=== PATIENT | female | born 1965 | race Hispanic/Latino ===

== ENCOUNTER 2024-05-04 12:34 | Observation (INO) | payer SELFPAY ==
--- OUTSIDE RECORDS SUMMARY | 2024-05-04 12:37 | XMS REPORT | Continuity of Care Document ---
Author Name Unknown Address [address] [facility] [address] [place] [address] [facility] thconnect Address [address] [facility] [address] [place] [address] Care Team Providers Care Motor Room Controller Name Role Phone Luther Dennys Jacob Attending Clinician Un available Inés John Attending Clinician Unavailable Gibran Murillo Attending Clinician Unavailable Mansoor Minor Attending Clinician Unavailable Physician, No Primary or Family Admitting Clinic kelli Unavailable Luther Dennys Jacob Admitting Clinician Un available Payers Payer Name Policy Type Policy Number Effective Date Expirati on Date Source Allergies, Adverse Reactions, Alerts Allergy Name Allergy Type Status Severity Reaction(s) Onset Date Inactive Date Treating Clinician Comments Source No Known Allergie s DA Active U 10-19 00:00: 00 [facility] No Known Allergie s DA Active U 10-19 00:00: 00 [facility] Encounters Start Date/Time End Date/Time Encounter Type Admission Type Attending Clinicians Care Facility Care Department Encounter ID Source 2020-01-09 20:48:00 Inpatient [facility] ER [id number] [facility] 2019-10-20 11:16:00 Inpatient [facility] ER [id number] [facility] 2024-02-08 13:39:00 2024-02-10 10:38:00 Inpatient EM Dennys Hernandez [facility] TEL [id number] [facility] 2023-03-20 17:34:00 2023-03-20 19:55:00 Emergency EM Inés John [facility] ER [id number] [facility] 2023-03-15 13:50:00 2023-03-15 15:50:00 Emergency EM Gibran Murillo [facility] ER [id number] [facility] 2023-03-13 16:20:00 2023-03-13 17:11:00 Emergency EM Mansoor Minor [facility] ER [id number] [facility] Results Test Description Test Time Test Comments Results Result Co mments Source COMPREHENSIVE METABOLIC [id number] 04:54:00* Test Item Value Reference Range Interpretation Comme nts SODIUM (test code = NA) 138 mmol/L 136-145 N Please revi ew results with caution Methodology has been changed with new instrumentation POTASSIUM (test code = K) 3.4 mmol/L 3.4-5.1 N Please revi ew results with caution Methodology has been changed with new instrumentation CHLORIDE (test code = CL) 107 mmol/L 98-107 N Please revi ew results with caution Methodology has been changed with new instrumentation CARBON DIOXIDE (test code = CO2) 26.0 mmol/L 20-31 N Please re view results with caution Methodology has been changed with new instrumentation GLUCOSE (test code = GLU) 182 mg/dL 74-106 H Please revi ew results with caution Methodology has been changed with new instrumentation BLOOD UREA NITROGEN (test code = BUN) 12 mg/dL 9-23 N Please revi ew results with caution Methodology has been changed with new instrumentation GLOMERULAR FILTRATION RATE (test code = GFR) 87 45-104 N The Glomerular Filtration Rate is a calculated parameterbased on serum Creatinine, patient age and sex. GFR valuesless than 60 mL/min/1.73 square meters are indicative ofChronic Kidney Disease. Values less than 15 mL/min/1.73square meters indicate Kidney failure. The calculation forGFR is based on the CKD-EPI (2020) calculation. This formulais race indifferent and is the recommended formula for GFRby the National Kidney Foundation for Adults.The GFR will not calculate if the sex is unknown or if thepatient's age is <18 years. CREATININE (test code = CREAT) 0.78 mg/dL 0.55-1.02 N Please revi ew results with caution Methodology has been changed with new instrumentation TOTAL PROTEIN (test code = PROT) 6.0 g/dL 5.7-8.2 N Please r eview results with caution Methodology has been changed with new instrumentation ALBUMIN (test code = ALB) 2.5 g/dL 3.4-5.0 L Please revi ew results with caution Methodology has been changed with new instrumentation GLOBULIN (test code = GLOB) 3.5 G/DL 1.5-3.8 N ALBUMIN/GLOBULIN RATIO (test code = A/G) 0.7 1.1-2.2 L CALCIUM (test code = CA) 8.5 mg/dL 8.3-10.6 N Please revi ew results with caution Methodology has been changed with new instrumentation BILIRUBIN TOTAL (test code = BILT) 0.40 mg/dL 0.20-1.10 N Please r eview results with caution Methodology has been changed with new instrumentation SGOT/AST (test code = AST) 14 U/L 0-33 N Please revi ew results with caution Methodology has been changed with new instrumentation SGPT/ALT (test code = ALT) 19 U/L 10-49 N Please revi ew results with caution Methodology has been changed with new instrumentation ALKALINE PHOSPHATASE TOTAL (test code = ALKP) 123 U/L 46-116 H Please r eview results with caution Methodology has been changed with new instrumentation INDEX HEMOLYSIS (test code = HEMINDEX) NEGATIVE Grade See_Comment [Automated messa ge] The system which generated this result transmitted reference range: 0 NEG. The reference range was not used to interpret this result as normal/abnormal. INDEX ICTERIC (test code = ICTINDEX) NEGATIVE Grade See_Comment [Automated messa ge] The system which generated this result transmitted reference range: 0 NEG. The reference range was not used to interpret this result as normal/abnormal. INDEX LIPEMIA (test code = LIPINDEX) NEGATIVE Grade See_Comment [Automated messa ge] The system which generated this result transmitted reference range: 0 NEG. The reference range was not used to interpret this result as normal/abnormal. CBC W/AUTO [id number] 02:50:00* Test Item Value Reference Range Interpretation Comme nts WHITE BLOOD CELL (test code = WBC) 7.03 x10 3/uL 4.80-10.80 N RED BLOOD CELL (test code = RBC) 4.27 x10 6/uL 4.2-5.4 N HEMOGLOBIN (test code = HGB) 12.3 G/DL 12.0-16.0 N HEMATOCRIT (test code = HCT) 36.3 % 37-47 L MEAN CELL VOLUME (test code = MCV) 85.0 FL 81-99 N MEAN CELL HGB (test code = MCH) 28.8 PG 27-31 N MEAN CELL HGB CONCENTRATION (test code = MCHC) 33.9 G/DL 33-37 N RED CELL DISTRIBUTION WIDTH (test code = RDW) 12.7 % 11.5-14.5 N PLATELET COUNT (test code = PLT) 157 x10 3/uL 150-450 N MEAN PLATELET VOLUME (test c ode = MPV) 10.5 FL 7.4-10.4 H NEUTROPHIL % (test code = NT%) 52.5 % 42-86 N IMMATURE GRANULOCYTE % (test code = IG%) 0.4 % 0.0-2.0 N LYMPHOCYTE % (test code = LY%) 34.4 % 24-44 N MONOCYTE % (test code = MO%) 8.0 % 0.0-4.0 H EOSINOPHIL % (test code = EO%) 4.4 % 0.0-2.7 H BASOPHIL % (test code = BA%) 0.3 % 0.0-0.5 N NUCLEATED RBC % (test code = NRBC%) 0.0 % 0.0-0.0 N NEUTROPHIL # (test code = NT#) 3.69 x10 3/uL 1.8-7.7 N IMMATURE GRANULOCYTE # (test code = IG#) 0.03 x10 3/uL 0.00-0.03 N LYMPHOCYTE # (test code = LY#) 2.42 x10 3/uL 1.0-4.8 N MONOCYTE # (test code = MO#) 0.56 x10 3/uL 0.0-0.8 N EOSINOPHIL # (test code = EO#) 0.31 x10 3/uL 0.0-0.5 N BASOPHIL # (test code = BA#) 0.02 x10 3/uL 0.0-0.2 N NUCLEATED RBC # (test code = NRBC#) 0.0 X10 3/uL 0.0-0.2 N [id number] 19:41:00* Test Item Value Reference Range Interpretation Comme nts GLUBED (test code = GLUBED) 295 MG/DL 65-99 H Performed by cer tified blow pit operator at [facility] [id number] 15:38:00* Test Item Value Reference Range Interpretation Comme nts GLUBED (test code = GLUBED) 234 MG/DL 65-99 H Performed by cer tified blow pit operator at [facility] [id number] 10:31:00* Test Item Value Reference Range Interpretation Comme nts GLUBED (test code = GLUBED) 279 MG/DL 65-99 H Performed by cer tified blow pit operator at [facility] RAPID PLASMA [id number] 09:55:00* Test Item Value Reference Range Interpretation Comme nts RAPID PLASMA REAGIN (test co de = RPR) Nonreactive Nonreactive PLEASE ADD ON TO GOLD TOP IN LAB AIF AVAILABLE AT [id number] 05:32:00 * Test Item Value Reference Range Interpretation Comme nts GLUBED (test code = GLUBED) 185 MG/DL 65-99 H Performed by cer tified blow pit operator at [facility] [id number] 04:25:00* Test Item Value Reference Range Interpretation Comme nts MAGNESIUM (test code = MAG) 1.7 mg/dL 1.6-2.6 N Please revi ew results with caution Methodology has been changed with new instrumentation COMPREHENSIVE METABOLIC [id number] 04:25:00* Test Item Value Reference Range Interpretation Comme nts SODIUM (test code = NA) 138 mmol/L 136-145 N Please revi ew results with caution Methodology has been changed with new instrumentation POTASSIUM (test code = K) 3.4 mmol/L 3.4-5.1 N Please revi ew results with caution Methodology has been changed with new instrumentation CHLORIDE (test code = CL) 108 mmol/L 98-107 H Please revi ew results with caution Methodology has been changed with new instrumentation CARBON DIOXIDE (test code = CO2) 26.0 mmol/L 20-31 N Please re view results with caution Methodology has been changed with new instrumentation GLUCOSE (test code = GLU) 235 mg/dL 74-106 H Please revi ew results with caution Methodology has been changed with new instrumentation BLOOD UREA NITROGEN (test code = BUN) 18 mg/dL 9-23 N Please revi ew results with caution Methodology has been changed with new instrumentation GLOMERULAR FILTRATION RATE (test code = GFR) 102 45-104 N The Glomerular Filtration Rate is a calculated parameterbased on serum Creatinine, patient age and sex. GFR valuesless than 60 mL/min/1.73 square meters are indicative ofChronic Kidney Disease. Values less than 15 mL/min/1.73square meters indicate Kidney failure. The calculation forGFR is based on the CKD-EPI (202) calculation. This formulais race indifferent and is the recommended formula for GFRby the National Kidney Foundation for Adults.The GFR will not calculate if the sex is unknown or if thepatient's age is <18 years. CREATININE (test code = CREAT) 0.62 mg/dL 0.55-1.02 N Please revi ew results with caution Methodology has been changed with new instrumentation TOTAL PROTEIN (test code = PROT) 5.8 g/dL 5.7-8.2 N Please r eview results with caution Methodology has been changed with new instrumentation ALBUMIN (test code = ALB) 2.5 g/dL 3.4-5.0 L Please revi ew results with caution Methodology has been changed with new instrumentation GLOBULIN (test code = GLOB) 3.3 G/DL 1.5-3.8 N ALBUMIN/GLOBULIN RATIO (test code = A/G) 0.8 1.1-2.2 L CALCIUM (test code = CA) 8.4 mg/dL 8.3-10.6 N Please revi ew results with caution Methodology has been changed with new instrumentation BILIRUBIN TOTAL (test code = BILT) 0.70 mg/dL 0.20-1.10 N Please r eview results with caution Methodology has been changed with new instrumentation SGOT/AST (test code = AST) 20 U/L 0-33 N Please revi ew results with caution Methodology has been changed with new instrumentation SGPT/ALT (test code = ALT) 22 U/L 10-49 N Please revi ew results with caution Methodology has been changed with new instrumentation ALKALINE PHOSPHATASE TOTAL (test code = ALKP) 115 U/L 46-116 N Please r eview results with caution Methodology has been changed with new instrumentation INDEX HEMOLYSIS (test code = HEMINDEX) NEGATIVE Grade See_Comment [Automated messa ge] The system which generated this result transmitted reference range: 0 NEG. The reference range was not used to interpret this result as normal/abnormal. INDEX ICTERIC (test code = ICTINDEX) NEGATIVE Grade See_Comment [Automated messa ge] The system which generated this result transmitted reference range: 0 NEG. The reference range was not used to interpret this result as normal/abnormal. INDEX LIPEMIA (test code = LIPINDEX) NEGATIVE Grade See_Comment [Automated messa ge] The system which generated this result transmitted reference range: 0 NEG. The reference range was not used to interpret this result as normal/abnormal. [id number] 04:25:00* Test Item Value Reference Range Interpretation Comme nts PHOSPHOROUS (test code = PHOS) 2.8 mg/dL 2.4-5.1 N Please revi ew results with caution Methodology has been changed with new instrumentation CBC W/AUTO [id number] 03:38:00* Test Item Value Reference Range Interpretation Comme nts WHITE BLOOD CELL (test code = WBC) 11.01 x10 3/uL 4.80-10.80 H RED BLOOD CELL (test code = RBC) 4.12 x10 6/uL 4.2-5.4 L HEMOGLOBIN (test code = HGB) 11.7 G/DL 12.0-16.0 L HEMATOCRIT (test code = HCT) 34.8 % 37-47 L MEAN CELL VOLUME (test code = MCV) 84.5 FL 81-99 N MEAN CELL HGB (test code = MCH) 28.4 PG 27-31 N MEAN CELL HGB CONCENTRATION (test code = MCHC) 33.6 G/DL 33-37 N RED CELL DISTRIBUTION WIDTH (test code = RDW) 12.8 % 11.5-14.5 N PLATELET COUNT (test code = PLT) 153 x10 3/uL 150-450 N MEAN PLATELET VOLUME (test code = MPV) 10.9 FL 7.4-10.4 H NEUTROPHIL % (test code = NT%) 64.2 % 42-86 N IMMATURE GRANULOCYTE % (test code = IG%) 0.4 % 0.0-2.0 N LYMPHOCYTE % (test code = LY%) 25.8 % 24-44 N MONOCYTE % (test code = MO%) 6.9 % 0.0-4.0 H EOSINOPHIL % (test code = EO%) 2.2 % 0.0-2.7 N BASOPHIL % (test code = BA%) 0.5 % 0.0-0.5 N NUCLEATED RBC % (test code = NRBC%) 0.0 % 0.0-0.0 N NEUTROPHIL # (test code = NT#) 7.08 x10 3/uL 1.8-7.7 N IMMATURE GRANULOCYTE # (test code = IG#) 0.04 x10 3/uL 0.00-0.03 H LYMPHOCYTE # (test code = LY#) 2.84 x10 3/uL 1.0-4.8 N MONOCYTE # (test code = MO#) 0.76 x10 3/uL 0.0-0.8 N EOSINOPHIL # (test code = EO#) 0.24 x10 3/uL 0.0-0.5 N BASOPHIL # (test code = BA#) 0.05 x10 3/uL 0.0-0.2 N NUCLEATED RBC # (test code = NRBC#) 0.0 X10 3/uL 0.0-0.2 N [id number] 21:40:00* Test Item Value Reference Range Interpretation Comme nts GLUBED (test code = GLUBED) 148 MG/DL 65-99 H Performed by cer tified blow pit operator at [facility] [id number] 19:57:00* Test Item Value Reference Range Interpretation Comme nts GLUBED (test code = GLUBED) 189 MG/DL 65-99 H Performed by cer tified blow pit operator at [facility] [id number] 16:54:00* Test Item Value Reference Range Interpretation Comme nts GLUBED (test code = GLUBED) 354 MG/DL 65-99 H Performed by cer tified blow pit operator at [facility] THYROID STIMULATING [id number] 16:02:00* Test Item Value Reference Range Interpretation Comme nts THYROID STIMULATING HORMONE (test code = TSH) 0.743 uIU/mL 0.550-4.780 N Micro-Internatio nal Units/L Please review results with caution Methodology has been changed with new instrumentation PLEASE ADD ON [facility] HEMOGLOBIN (HA1C)2024-02-08 15:47:00* Test Item Value Reference Range Interpretation Comme nts GLYCOSYLATED HEMOGLOBIN (HA1C) (test code = GLYHGB) 13.50 % 0.0-5.6 H Please review results with caution Methodology has been changed with new instrumentation PLEASE ADD ON TO BLOOD [facility]BUSE SCREEN [id number] 15:46:00* Test Item Value Reference Range Interpretation Comments UR COCAINE (test code = COCAU) NEGATIVE NEGATIVE Please revi ew results with caution Methodology has been changed with new instrumentation UR MDMA (test code = MDMAQLU) NEGATIVE NEGATIVE UR CANNABINOIDS (test code = CANU) NEGATIVE NEGATIVE Please r eview results with caution Methodology has been changed with new instrumentation UR AMPHETAMINE (test code = AMPHU) NEGATIVE NEGATIVE Please revi ew results with caution Methodology has been changed with new instrumentation UR BARBITURATE QUAL (test code = BARBQLU) NEGATIVE NEGATIVE Please revi ew results with caution Methodology has been changed with new instrumentation UR BENZODIAZEPINE (test code = BENZU) NEGATIVE NEGATIVE Please review results with caution Methodology has been changed with new instrumentation UR OPIATES QUAL (test code = OPIAQLU) NEGATIVE NEGATIVE Please revi ew results with caution Methodology has been changed with new instrumentation UR PHENCYCLIDINE (PCP) (test code = PHENCU) NEGATIVE NEGATIVE Urine Drug Abuse Screen provides preliminary results thatmay be confirmed by alternate methods (i.e., GC/MS) [facility]. Results of screen may not be usedin criminal justice, job performance or professionalcredential review, or custody issues. Negative [place] Level ng/ml ----- Cocaine 300 Methamphetamine (Ecstacy) 500 Cannabinoids (THC) 50 Amphetamine 1000 Barbiturates 200 Benzodiazepines 200 Opiates 300 Phencyclidine (PCP) 25 PLEASE ADD ON TO URINE IN LAB AT [facility] [id number] 14:14:00* Test Item Value Reference Range Interpretation Comme nts LACTIC ACID (test code = LACT) 2.90 mmol/L 0.5-2.2 H Please revi ew results with caution Methodology has been changed with new instrumentation [id number] 13:43:00* Test Item Value Reference Range Interpretation Comme nts GLUBED (test code = GLUBED) 398 MG/DL 65-99 H Performed by cer tified blow pit operator at [facility] LACTIC [id number] 13:29:00* Test Item Value Reference Range Interpretation Comme nts LACTIC ACID (test code = LACT) 2.10 mmol/L 0.5-2.2 N Please revi ew results with caution Methodology has been changed with new instrumentation BASIC METABOLIC [id number] 12:59:00* Test Item Value Reference Range Interpretation Comme nts SODIUM (test code = NA) 136 mmol/L 136-145 N Please revi ew results with caution Methodology has been changed with new instrumentation POTASSIUM (test code = K) 4.0 mmol/L 3.4-5.1 N Please revi ew results with caution Methodology has been changed with new instrumentation CHLORIDE (test code = CL) 104 mmol/L 98-107 N Please revi ew results with caution Methodology has been changed with new instrumentation CARBON DIOXIDE (test code = CO2) 28.0 mmol/L 20-31 N Please re view results with caution Methodology has been changed with new instrumentation GLUCOSE (test code = GLU) 520 mg/dL 74-106 HH Please revi ew results with caution Methodology has been changed with new instrumentation BLOOD UREA NITROGEN (test code = BUN) 21 mg/dL 9-23 N Please revi ew results with caution Methodology has been changed with new instrumentation GLOMERULAR FILTRATION RATE (test code = GFR) 55 45-104 N The Glomerular Filtration Rate is a calculated parameterbased on serum Creatinine, patient age and sex. GFR valuesless than 60 mL/min/1.73 square meters are indicative ofChronic Kidney Disease. Values less than 15 mL/min/1.73square meters indicate Kidney failure. The calculation forGFR is based on the CKD-EPI (202) calculation. This formulais race indifferent and is the recommended formula for GFRby the National Kidney Foundation for Adults.The GFR will not calculate if the sex is unknown or if thepatient's age is <18 years. CREATININE (test code = CREAT) 1.14 mg/dL 0.55-1.02 H Please revi ew results with caution Methodology has been changed with new instrumentation CALCIUM (test code = CA) 9.2 mg/dL 8.3-10.6 N Please revi ew results with caution Methodology has been changed with new instrumentation INDEX HEMOLYSIS (test code = HEMINDEX) NEGATIVE Grade See_Comment [Automated messa ge] The system which generated this result transmitted reference range: 0 NEG. The reference range was not used to interpret this result as normal/abnormal. INDEX ICTERIC (test code = ICTINDEX) NEGATIVE Grade See_Comment [Automated messa ge] The system which generated this result transmitted reference range: 0 NEG. The reference range was not used to interpret this result as normal/abnormal. INDEX LIPEMIA (test code = LIPINDEX) NEGATIVE Grade See_Comment [Automated messa ge] The system which generated this result transmitted reference range: 0 NEG. The reference range was not used to interpret this result as normal/abnormal. : High sensitivity troponinHEPATIC FUNCTION [id number] 12:59:00* Test Item Value Reference Range Interpretation Comme nts TOTAL PROTEIN (test code = PROT) 7.3 g/dL 5.7-8.2 N Please revi ew results with caution Methodology has been changed with new instrumentation ALBUMIN (test code = ALB) 3.4 g/dL 3.4-5.0 N Please revi ew results with caution Methodology has been changed with new instrumentation GLOBULIN (test code = GLOB) 3.9 G/DL 1.5-3.8 H ALBUMIN/GLOBULIN RATIO (test code = A/G) 0.9 1.1-2.2 L BILIRUBIN TOTAL (test code = BILT) 0.90 mg/dL 0.20-1.10 N Please r eview results with caution Methodology has been changed with new instrumentation BILIRUBIN DIRECT (test code = BILD) 0.3 mg/dL 0.1-0.3 N Please r eview results with caution Methodology has been changed with new instrumentation BILIRUBIN INDIRECT (test code = BILIND) 0.6 MG/DL 0.0-0.7 N SGOT/AST (test code = AST) 15 U/L 0-33 N Please revi ew results with caution Methodology has been changed with new instrumentation SGPT/ALT (test code = ALT) 20 U/L 10-49 N Please revi ew results with caution Methodology has been changed with new instrumentation ALKALINE PHOSPHATASE TOTAL (test code = ALKP) 151 U/L 46-116 H Please revi ew results with caution Methodology has been changed with new instrumentation : High sensitivity troponinTROP-I HIGH [id number] 12:59:00* Test Item Value Reference Range Interpretation Comme nts TROP-I HIGH SENSITIVITY (test code = TROPIHS) 4.0 ng/L < 34 - The use of serial sampling and testing protocol is a recommended practice.- An elevated troponin level alone is often not sufficient for diagnosis of myocardial infarction.New Reference Ranges please review<34 ng/L for Females and <53 ng/L for Males revised from <51 ng/L for Females and <76 ng/L for Maleson 01/16/2024 : High sensitivity troponinCV CALL [id number] 12:59:00* Test Item Value Reference Range Interpretation Comme nts CV CALL CHEM (test code = CVC) Called Results called t o and read back by RUFINA MONTANO;.for analyte(s): GLU .at 1259 - 02/08/24; by [id number]. : High sensitivity troponinCBC W/AUTO [id number] 12:31:00* Test Item Value Reference Range Interpretation Comme nts WHITE BLOOD CELL (test code = WBC) 11.27 x10 3/uL 4.80-10.80 H RED BLOOD CELL (test code = RBC) 4.76 x10 6/uL 4.2-5.4 N HEMOGLOBIN (test code = HGB) 13.6 G/DL 12.0-16.0 N HEMATOCRIT (test code = HCT) 40.5 % 37-47 N MEAN CELL VOLUME (test code = MCV) 85.1 FL 81-99 N MEAN CELL HGB (test code = MCH) 28.6 PG 27-31 N MEAN CELL HGB CONCENTRATION (test code = MCHC) 33.6 G/DL 33-37 N RED CELL DISTRIBUTION WIDTH (test code = RDW) 12.6 % 11.5-14.5 N PLATELET COUNT (test code = PLT) 167 x10 3/uL 150-450 N MEAN PLATELET VOLUME (test code = MPV) 11.0 FL 7.4-10.4 H NEUTROPHIL % (test code = NT%) 90.6 % 42-86 H IMMATURE GRANULOCYTE % (test code = IG%) 0.5 % 0.0-2.0 N LYMPHOCYTE % (test code = LY%) 5.7 % 24-44 L MONOCYTE % (test code = MO%) 1.8 % 0.0-4.0 N EOSINOPHIL % (test code = EO%) 1.0 % 0.0-2.7 N BASOPHIL % (test code = BA%) 0.4 % 0.0-0.5 N NUCLEATED RBC % (test code = NRBC%) 0.0 % 0.0-0.0 N NEUTROPHIL # (test code = NT#) 10.22 x10 3/uL 1.8-7.7 H IMMATURE GRANULOCYTE # (test code = IG#) 0.06 x10 3/uL 0.00-0.03 H LYMPHOCYTE # (test code = LY#) 0.64 x10 3/uL 1.0-4.8 L MONOCYTE # (test code = MO#) 0.20 x10 3/uL 0.0-0.8 N EOSINOPHIL # (test code = EO#) 0.11 x10 3/uL 0.0-0.5 N BASOPHIL # (test code = BA#) 0.04 x10 3/uL 0.0-0.2 N NUCLEATED RBC # (test code = NRBC#) 0.0 X10 3/uL 0.0-0.2 N Coronavirus 2019 nCoV [id number] 12:19:00* Test Item Value Reference Range Interpretation Comme nts Coronavirus 2019 nCoV Bedside (test code = [id number]) Negative Negative ID NOW COVID-19 assay performed on the ID NOW Instrument annalisa rapid molecular in vitro diagnostic test utilizing anisothermal nucleic acid amplification technology intendedfor the qualitative detection of nucleic acid from [id number] viral RNA in direct nasal, nasopharyngeal orthroat swabs and nasal, nasopharyngeal or throat swabseluted in viral transport media from individuals who aresuspected of COVID-19 by their healthcare provider. Negative results should be treated as presumptive and, ifinconsistent with clinical signs and symptoms or necessaryfor patient management, should be tested with differentauthorized or cleared molecular tests. Negative results donot preclude SARS-CoV-2 infection and should not be used asthe sole basis for patient management decisions. Negativeresults should be considered in the context of a patient'srecent exposures, history and presence of clinical signs andsymptoms consistent with COVID-19.Results are for the identification of SARS-CoV-2 RNA.For Use Under an Emergency Use Authorization (EUA) Only Negative results do not preclude SARS-CoV-2 infection andshould not be used as the sole basis for patient managementdecisions. Negative results must be combined with clinicalobservations, patient history, and epidemiologicalinformation . UA RFLX MICROSCOPIC [id number] 12:15:00* Test Item Value Reference Range Interpretation Comme nts UA COLOR (test code = COLU) Yellow YELLOW UA APPEARANCE (test code = APPU) Ex.Turbid CLEAR UA GLUCOSE DIPSTICK (test code = DGLUU) > 1000 mg/dL NEGATIVE A UA BILIRUBIN DIPSTICK (test code = BILU) NEGATIVE NEGATIVE UA KETONE DIPSTICK (test code = KETU) NEGATIVE mg/dL NEGATIVE UA SPECIFIC GRAVITY (test code = SGU) 1.024 1.001-1.035 N UA BLOOD DIPSTICK (test code = RADHA) 2+ NEGATIVE A UA PH DIPSTICK (test code = MARY ELLEN) 5.5 5.5-7.0 N UA PROTEIN DIPSTICK (test code = PROU) 100 mg/dL NEGATIVE A UA UROBILINOGEN DIPSTICK (test code = URO) NORMAL mg/dL NORMAL UA NITRITE DIPSTICK (test code = RAFI) NEGATIVE NEGATIVE UA LEUKOCYTE ESTERASE DIPSTICK (test code = LEUU) 500 NEGATIVE A UA COMMENT (test code = COMU) VOLUME 10-12 ML URINE SPECIMEN DESCRIPTION (test code = UASPEC) Clean Catch UA WBC (test code = WBCU) > 50 #/HPF 0-10 A UA SQUAMOUS CELLS (test code = SQU) > 100 #/LPF <100 A UA CULTURE NEEDED? (test code = UACULT) Criteria not met Indication for culture: RiskForSepsis-no oth src Suprapubic PainURINE SOURCE: Clean CatchUA [id number] 12:15:00* Test Item Value Reference Range Interpretation Comme nts UA RBC (test code = RBCU) 0-2 #/hpf NONE SEEN A Indication for culture: RiskForSepsis-no oth src Suprapubic PainURINE SOURCE: Clean Catch- XR RIBS UNI W/CXR 3+V [id number] 19:04:00 [facility] 1965 Sex: F Patient Name: STEFANO SINCLAIR Unit No: [id number] EXAMS: CPT CODE: [id number] XR RIBS UNI W/CXR 3+V [id number] Reason: pain, previous fractures EXAM: - XR RIBS UNI W/CXR 3+V LT LOCATION: H47 HISTORY: pain, previous fractures COMPARISON: None available at the time of interpretation. FINDINGS: 2 views ofthe left ribs. Single frontal view the chest. No indwelling lines or tubes. No pneumothorax. The lungs are clear. No pleural effusions are present. No displaced rib fractures. IMPRESSION: No displaced rib fractures. at 1904 Reported and signed by: Savage Chaney MD CC: Zhou MOSQUEDA; Inés John MD Technologist: Charissa Almodovar Trscrpt Dt/ (1903)[email or web address] Orig Print D/T: S: 03/20/2023 (1906) [facility] NAME: STEFANO SINCLAIR [address] PHYS: Inés Scott MD [facility] [place] [address] : 1965 AGE: 57 SEX: F LOC: TAE PHONE #: [phone] EXAM DATE: 03/20/2023 STATUS: REG ER FAX #: RAD NO: DC Dt: PAGE 1 Signed Report- XR RIBS UNI W/CXR 3+V [id number] 14:30:00 [facility] : 1965 Sex: F Patient Name: STEFANO SINCLAIR Unit No: [id number] EXAMS: CPT CODE: [id number] XR RIBS UNI W/CXR 3+V [id number] Reason: return from visit 4 days ago continued pain med Left rib series with PA view chest INDICATION: Fall with rib pain LOCATION: H113 FINDINGS: PA view of the chest demonstrates no consolidation, large pleural effusions or pneumothorax. The cardiac silhouette is normal in size. AP and oblique views of the left ribs demonstrate a nondisplaced acute fracture of the posterior lateral aspectof the left 6th and 7th ribs. IMPRESSION: 1. Acute nondisplaced fracture of the posterolateral aspect of the left 6th and 7th ribs. 2. Clear lungs. at 1430 Reported and signed by: Charan Ryan MD CC: Germán MOSQUEDA; Gibran Murillo DO Technologist: RT Lakisha Trscrpt Dt/ (143)AlexandrRSM1 Orig Print D/T: S: 03/15/2023 (5443) [facility] NAME: STEFANO SINCLAIR [address] PHYS: [id number] - Gibran Murillo DO [facility] [address] : 1965 AGE: 57 SEX: F LOC: TAE PHONE #: [phone] EXAM DATE: 03/15/2023 STATUS: PRE ER FAX #: RAD NO: DC Dt: PAGE 1 Signed Report- XR RIBS UNI 2 V [id number] 16:52:00 [facility] : 1965 Sex: F Patient Name: STEFANO PETERSON Unit No: [id number] EXAMS: CPT CODE: [id number] XR RIBS UNI 2 [place] [address] Reason: fall/rib pain Dictation location B2 Chest and bilateral RIBS 6 views HISTORY: Fall with rib pain COMMENT: The heart is normal in size. The lungs are symmetrically expanded with no contusion or pneumothorax. Small effusions are suspected. No displaced rib fractures seen. There is no paraspinal widening. There are spondylitic changes stopped spine. Postcholecystectomy clips noted. IMPRESSION: 1. Small effusions with no other acute findings in the chest. 2. No displaced rib fractures. 3. In the setting of trauma, further evaluation with CT may be helpful. at 1652 Reported and signed by: Elza Pike MD CC: Mansoor Minor MD; Tal MOSQUEDA Technologist: Betsey CANDELARIO Trscrpt Dt/ (1651)DeannC Orig Print D/T: S: 03/13/2023 (1656) [facility] NAME: STEFANO PETERSON [address] PHYS: Mansoor Kelly MD [facility] [place] [address] : 1965 AGE: 57 SEX: F LOC: TAE PHONE #: [phone] EXAM DATE: 03/13/2023 STATUS: PRE ER FAX #: RAD NO: DC Dt: PAGE 1 Signed Report- XR RIBS UNI W/CXR 3+V [id number] 16:52:00 [facility] : 1965 Sex: F Patient Name: STEFANO PETERSON Unit No: [id number] EXAMS: CPT CODE: [id number] XR RIBS UNI W/CXR 3+[place] [id number] Reason: fall/rib pain Dictation location B2 Chest and bilateral RIBS 6 views HISTORY: Fall with rib pain COMMENT: The heart is normal in size. The lungs are symmetrically expanded with no contusion or pneumothorax. Small effusions are suspected. No displaced rib fractures seen. There is no paraspinal widening. There are spondylitic changes stopped spine. Postcholecystectomy clips noted. IMPRESSION: 1. Small effusions with no other acute findings in the chest. 2. No displaced rib fractures. 3. In the setting of trauma, further evaluation with CT may be helpful. at 1652 Reported and signed by: Elza Pike MD CC: Mansoor Minor MD; Sarah MOSQUEDA Technologist: Betsey CANDELARIO Trscrpt Dt/ (6561)AlexandrPXC Orig Print D/T: S: 03/13/2023 (9100) [facility] NAME: PETERSONNILES GuthrieA Megan [address] PHYS: Mansoor Kelly MD [facility] [address] : 1965 AGE: 57 SEX: F LOC: AlexanderSTEPH PHONE #: [phone] EXAM DATE: 03/13/2023 STATUS: PRE ER FAX #: RAD NO: DC Dt: PAGE 1 Signed ReportUA RFLX MICROSCOPIC [id number] 22:49:00* Test Item Value Reference Range Interpretation Comme nts UA COLOR (test code = COLU) Colorless YELLOW UA APPEARANCE (test code = APPU) CLEAR CLEAR UA GLUCOSE DIPSTICK (test code = DGLUU) > 1000 mg/dL NEGATIVE A UA BILIRUBIN DIPSTICK (test code = BILU) NEGATIVE NEGATIVE UA KETONE DIPSTICK (test code = KETU) NEGATIVE mg/dL NEGATIVE UA SPECIFIC GRAVITY (test code = SGU) 1.035 1.001-1.035 N UA BLOOD DIPSTICK (test code = RADHA) NEGATIVE NEGATIVE UA PH DIPSTICK (test code = MARY ELLEN) 5.5 5.5-7.0 N UA PROTEIN DIPSTICK (test code = PROU) NEGATIVE mg/dL NEGATIVE UA UROBILINOGEN DIPSTICK (test code = URO) NORMAL mg/dL NORMAL UA NITRITE DIPSTICK (test code = RAFI) NEGATIVE NEGATIVE UA LEUKOCYTE ESTERASE DIPSTICK (test code = LEUU) 75 NEGATIVE A UA COMMENT (test code = COMU) VOLUME 10-12 ML URINE SPECIMEN DESCRIPTION (test code = UASPEC) Clean Catch UA WBC (test code = WBCU) < 10 #/HPF 0-10 UA SQUAMOUS CELLS (test code = SQU) 21 - 40 #/LPF <100 A UA CULTURE NEEDED? (test code = UACULT) Criteria not met Indication for culture: Flank PainURINE SOURCE: Clean CatchUA MICROSCOPIC 2020-01-09 22:49:00* Test Item Value Reference Range Interpretation Comme nts UA RBC (test code = RBCU) 0-2 #/hpf NONE SEEN A Indication for culture: Flank PainURINE SOURCE: Clean CatchUA RFLX MICROSCOPIC [id number] 22:25:00* Test Item Value Reference Range Interpretation Comme nts UA COLOR (test code = COLU) Colorless YELLOW UA APPEARANCE (test code = APPU) CLEAR CLEAR UA GLUCOSE DIPSTICK (test code = DGLUU) > 1000 mg/dL NEGATIVE A UA BILIRUBIN DIPSTICK (test code = BILU) NEGATIVE NEGATIVE UA KETONE DIPSTICK (test code = KETU) NEGATIVE mg/dL NEGATIVE UA SPECIFIC GRAVITY (test code = SGU) 1.035 1.001-1.035 N UA BLOOD DIPSTICK (test code = RADHA) NEGATIVE NEGATIVE UA PH DIPSTICK (test code = MARY ELLEN) 5.5 5.5-7.0 N UA PROTEIN DIPSTICK (test code = PROU) NEGATIVE mg/dL NEGATIVE UA UROBILINOGEN DIPSTICK (test code = URO) NORMAL mg/dL NORMAL UA NITRITE DIPSTICK (test code = RAFI) NEGATIVE NEGATIVE UA LEUKOCYTE ESTERASE DIPSTICK (test code = LEUU) 75 NEGATIVE A UA COMMENT (test code = COMU) VOLUME 10-12 ML URINE SPECIMEN DESCRIPTION (test code = UASPEC) Clean Catch UA WBC (test code = WBCU) < 10 #/HPF 0-10 UA SQUAMOUS CELLS (test code = SQU) 21 - 40 #/LPF <100 A UA CULTURE NEEDED? (test code = UACULT) Criteria not met Indication for culture: Flank PainURINE SOURCE: Clean CatchUA MICROSCOPIC 2020-01-09 22:25:00* Test Item Value Reference Range Interpretation Comme nts UA RBC (test code = RBCU) #/hpf NONE SEEN Indication for culture: Flank PainURINE SOURCE: Clean CatchUA RFLX MICROSCOPIC [id number] 22:25:00* Test Item Value Reference Range Interpretation Comme nts UA COLOR (test code = COLU) Colorless YELLOW UA APPEARANCE (test code = APPU) CLEAR CLEAR UA GLUCOSE DIPSTICK (test code = DGLUU) > 1000 mg/dL NEGATIVE A UA BILIRUBIN DIPSTICK (test code = BILU) NEGATIVE NEGATIVE UA KETONE DIPSTICK (test code = KETU) NEGATIVE mg/dL NEGATIVE UA SPECIFIC GRAVITY (test code = SGU) 1.035 1.001-1.035 N UA BLOOD DIPSTICK (test code = RADHA) NEGATIVE NEGATIVE UA PH DIPSTICK (test code = MARY ELLEN) 5.5 5.5-7.0 N UA PROTEIN DIPSTICK (test code = PROU) NEGATIVE mg/dL NEGATIVE UA UROBILINOGEN DIPSTICK (test code = URO) NORMAL mg/dL NORMAL UA NITRITE DIPSTICK (test code = RAFI) NEGATIVE NEGATIVE UA LEUKOCYTE ESTERASE DIPSTICK (test code = LEUU) 75 NEGATIVE A UA COMMENT (test code = COMU) VOLUME 10-12 ML URINE SPECIMEN DESCRIPTION (test code = UASPEC) Clean Catch UA WBC (test code = WBCU) < 10 #/HPF 0-10 UA SQUAMOUS CELLS (test code = SQU) 21 - 40 #/LPF <100 A UA CULTURE NEEDED? (test code = UACULT) Criteria not met Indication for culture: Flank PainURINE SOURCE: Clean CatchUA MICROSCOPIC 2020-01-09 22:25:00* Test Item Value Reference Range Interpretation Comme nts UA RBC (test code = RBCU) #/hpf NONE SEEN Indication for culture: Flank PainURINE SOURCE: Clean CatchCOMPREHENSIVE METABOLIC [id number] 21:59:00* Test Item Value Reference Range Interpretation Comme nts SODIUM (test code = NA) 136 MMOL/L 133-145 N POTASSIUM (test code = K) 4.1 MMOL/L 3.6-5.2 N CHLORIDE (test code = CL) 101 MMOL/L 100-108 N CARBON DIOXIDE (test code = CO2) 29 MMOL/L 22-32 N GLUCOSE (test code = GLU) 444 MG/DL 65-99 HH Results of this assay method may be falsely depressed orelevated if patient is taking sulfasalazine. BLOOD UREA NITROGEN (test code = BUN) 17 MG/DL 6-20 N GLOMERULAR FILTRATION RATE (test code = GFR) 71 51-120 N Reporting units: mL/min/1.73m\S\2 (Modified MDRD Formula) CREATININE (test code = CREAT) 0.83 MG/DL 0.60-1.00 N TOTAL PROTEIN (test code = PROT) 8.3 G/DL 6.4-8.2 H ALBUMIN (test code = ALB) 3.4 G/DL 3.4-5.0 N GLOBULIN (test code = GLOB) 4.9 G/DL 1.5-3.8 H ALBUMIN/GLOBULIN RATIO (test code = A/G) 0.7 1.1-2.2 L CALCIUM (test code = CA) 9.6 MG/DL 8.7-10.5 N BILIRUBIN TOTAL (test code = BILT) 0.3 MG/DL 0.0-1.0 N SGOT/AST (test code = AST) 19 Units/L 15-37 N Results of this assay method may be falsely depressed orelevated if patient is taking sulfasalazine. SGPT/ALT (test code = ALT) 42 Units/L 30-65 N Results of this assay method may be falsely depressed orelevated if patient is taking sulfasalazine. ALKALINE PHOSPHATASE TOTAL (test code = ALKP) 166 Units/L 50-136 H [id number] 21:59:00* Test Item Value Reference Range Interpretation Comme nts MAGNESIUM (test code = MAG) 2.0 MG/DL 1.8-2.4 N [id number] 21:59:00* Test Item Value Reference Range Interpretation Comme nts TROPONIN-I (test code = TROPI) < 0.04 NG/ML 0.00-0.06 N - The use of ser ial sampling and testing protocol is a recommended practice.- An elevated troponin level alone is often not sufficient for diagnosis of myocardial infarction.Results of this assay method may be falsely depressed orelevated if patient is taking high doses of Biotin. CV CALL [id number] 21:59:00* Test Item Value Reference Range Interpretation Comme nts CV CALL CHEM (test code = CVC) Called Results called t o and read back by RVIER VELASQUEZ RN;.for analyte(s): GLU .at 215801/09/20; by ANTONIOLINDA. COMPREHENSIVE METABOLIC [id number] 21:58:00* Test Item Value Reference Range Interpretation Comme nts SODIUM (test code = NA) 136 MMOL/L 133-145 N POTASSIUM (test code = K) 4.1 MMOL/L 3.6-5.2 N CHLORIDE (test code = CL) 101 MMOL/L 100-108 N CARBON DIOXIDE (test code = CO2) 29 MMOL/L 22-32 N GLUCOSE (test code = GLU) 444 MG/DL 65-99 HH Results of this assay method may be falsely depressed orelevated if patient is taking sulfasalazine. BLOOD UREA NITROGEN (test code = BUN) 17 MG/DL 6-20 N GLOMERULAR FILTRATION RATE (test code = GFR) 71 51-120 N Reporting units: mL/min/1.73m\S\2 (Modified MDRD Formula) CREATININE (test code = CREAT) 0.83 MG/DL 0.60-1.00 N TOTAL PROTEIN (test code = PROT) 8.3 G/DL 6.4-8.2 H ALBUMIN (test code = ALB) 3.4 G/DL 3.4-5.0 N GLOBULIN (test code = GLOB) 4.9 G/DL 1.5-3.8 H ALBUMIN/GLOBULIN RATIO (test code = A/G) 0.7 1.1-2.2 L CALCIUM (test code = CA) 9.6 MG/DL 8.7-10.5 N BILIRUBIN TOTAL (test code = BILT) 0.3 MG/DL 0.0-1.0 N SGOT/AST (test code = AST) 19 Units/L 15-37 N Results of this assay method may be falsely depressed orelevated if patient is taking sulfasalazine. SGPT/ALT (test code = ALT) 42 Units/L 30-65 N Results of this assay method may be falsely depressed orelevated if patient is taking sulfasalazine. ALKALINE PHOSPHATASE TOTAL (test code = ALKP) 166 Units/L 50-136 H [id number] 21:58:00* Test Item Value Reference Range Interpretation Comme nts MAGNESIUM (test code = MAG) 2.0 MG/DL 1.8-2.4 N [id number] 21:58:00* Test Item Value Reference Range Interpretation Comme nts TROPONIN-I (test code = TROPI) < 0.04 NG/ML 0.00-0.06 N - The use of ser ial sampling and testing protocol is a recommended practice.- An elevated troponin level alone is often not sufficient for diagnosis of myocardial infarction.Results of this assay method may be falsely depressed orelevated if patient is taking high doses of Biotin. CV CALL [id number] 21:58:00* Test Item Value Reference Range Interpretation Comme nts CV CALL CHEM (test code = CVC) BETA [id number] 21:45:00* Test Item Value Reference Range Interpretation Comme nts BETA HYDROXYBUTYRATE (test c ode = BETHYD) 0.15 mmol/L 0.02-0.27 N CBC W/AUTO [id number] 21:40:00* Test Item Value Reference Range Interpretation Comme nts WHITE BLOOD CELL (test code = WBC) 8.90 x10 3/uL 4.80-10.80 N RED BLOOD CELL (test code = RBC) 5.30 x10 6/uL 4.2-5.4 N HEMOGLOBIN (test code = HGB) 14.6 G/DL 12.0-16.0 N HEMATOCRIT (test code = HCT) 44.2 % 37-47 N MEAN CELL VOLUME (test code = MCV) 83.4 FL 81-99 N MEAN CELL HGB (test code = MCH) 27.5 PG 27-31 N MEAN CELL HGB CONCENTRATION (test code = MCHC) 33.0 G/DL 33-37 N RED CELL DISTRIBUTION WIDTH (test code = RDW) 12.2 % 11.5-14.5 N PLATELET COUNT (test code = PLT) 216 x10 3/uL 150-450 N MEAN PLATELET VOLUME (test c ode = MPV) 10.8 FL 7.4-10.4 H NEUTROPHIL % (test code = NT%) 56.5 % 42-86 N IMMATURE GRANULOCYTE % (test code = IG%) 0.1 % 0.0-2.0 N LYMPHOCYTE % (test code = LY%) 35.3 % 24-44 N MONOCYTE % (test code = MO%) 4.3 % 0.0-4.0 H EOSINOPHIL % (test code = EO%) 3.4 % 0.0-2.7 H BASOPHIL % (test code = BA%) 0.4 % 0.0-0.5 N NUCLEATED RBC % (test code = NRBC%) 0.0 % 0.0-0.0 N NEUTROPHIL # (test code = NT#) 5.03 x10 3/uL 1.8-7.7 N IMMATURE GRANULOCYTE # (test code = IG#) 0.01 x10 3/uL 0.00-0.03 N LYMPHOCYTE # (test code = LY#) 3.14 x10 3/uL 1.0-4.8 N MONOCYTE # (test code = MO#) 0.38 x10 3/uL 0.0-0.8 N EOSINOPHIL # (test code = EO#) 0.30 x10 3/uL 0.0-0.5 N BASOPHIL # (test code = BA#) 0.04 x10 3/uL 0.0-0.2 N NUCLEATED RBC # (test code = NRBC#) 0.0 X10 3/uL 0.0-0.2 N - XR CHEST 1 [id number] 21:26:00 [facility] : 1965 Sex: F Patient Name: STEFANO PETERSON Unit No: [id number] EXAMS: CPT CODE: [id number] XR CHEST 1 V 32819 Reason: CARDIO/PULM WORK UP INDICATION: Weakness and dizziness; cardiopulmonary workup. COMPARISON: None PROCEDURE: Chest one view 01/09/2020; 2110 hours FINDINGS: The heart size is normal. The lungs are clear.No pleural effusion, pulmonary congestion, mediastinal mass or bone lesion is seen. IMPRESSION: Nega tive chest. at 2125 Reported and signed by: Иван Souza MD CC: Germán Payne CARE NAVIGATOR; Mckinley Rondon III DO Technologist: Betsey Henry RT; Charissa Charles RT Trscrpt Dt/ (2125)[id number] Orig Print D/T: S:01/09/2020 (2128) [facility] NAME: STEFANO PETERSON [address] PHYS: SCHHA.Adria- Mckinley Rondon II [facility], [place] [address] : 1965 AGE: 54 SEX: F LOC: TAE PHONE #: [phone] EXAM DATE: 01/09/2020 STATUS: REG ER FAX #: RAD NO: DC Dt: PAGE 1 Signed Report
[2024-05-04] MEDS ORDERED: TENECTEPLASE 50 MG/10 ML VIAL IV ONE (12:44)
--- NOTE | 2024-05-04 13:00 | RAD REPORT ---
EXAMINATION: CT HEAD stroke protocol WITHOUT CONTRAST CLINICAL INDICATION: Female, 58 years old.STROKE ALERT TECHNIQUE: Axial CT images from the skull base to the vertex without intravenous contrast using a str donna protocol. Coronal and sagittal reformatted images were created from the data set. One or more of the following dose reduction techniques were used: Automated exposure control, adjustment of the m A and/or kV according to patient size, and/or iterative reconstruction. Unless otherwise specified, incidental findings do not require dedicated imaging follow-up. [id number]. COMPARISON: No prior exam. FINDINGS: INTRACRANIAL: No acute intracranial hemorrhage. No hydrocephalus. No mass effect or midline shift. No significant white matter disease. VASCULATURE: No visualized abnormalities in the arteries or dural venous sinuses. SCALP/SKULL: No significant soft tissue or osseous abnormalities. SINUSES: The visualized paranasal sinuses and mastoid air cells are predominantly clear. IMPRESSION: No acute intracranial abnormality. THIS REPORT CONTAINS FINDINGS THAT MAY BE CRITICAL TO PATIENT CARE. The findings were communicated to Dr. Dallas on 05/04/2024 12:57 PM.
--- NOTE | 2024-05-04 13:02 | RAD REPORT ---
EXAMINATION: CTA NECK CLINICAL INDICATION: Female, 58 years old. dysarthria TECHNIQUE: Axial CT images were obtained from the aortic arch to the skull base after intravenous con trast utilizing angiographic protocol with 3D post-processing (maximum intensity projection images, volume rendered images and/or shaded surface rendered images). One or more of the following dose redu ction techniques were used: Automated exposure control, adjustment of the mA and/or kV according to patient size, and/or iterative reconstruction. Unless otherwise specified, incidental findings do not require dedicated imaging follow-up. [id number]. NASCET criteria used. Mild 0-49% stenosis Moderate 50-69% stenosis Severe 70-99% stenosis COMPARISON: No prior exam. FINDINGS: AORTA: The imaged aortic arch is normal. CCA: The common carotid arteries are patent and normal in caliber. ICA/ECA: Bilateral internal and external carotid arteries are patent. There is no significant interna l carotid artery stenosis. Where applicable, degree of stenosis is measured using NASCET-like criteria. VERTEBRAL: Left dominant vertebral artery. SOFT TISSUE: No significant neck soft tissue abnormalities. The visualized lung apices are clear. 3D images confirm these findings. IMPRESSION: No dissection or stenosis identified.
--- NOTE | 2024-05-04 13:04 | RAD REPORT ---
EXAMINATION: CTA HEAD CLINICAL INDICATION: Female, 58 years old. dysarthria, lkw 1200 TECHNIQUE: Axial CT images were obtained through the head after intravenous contrast utilizing angiog raphic protocol with 3D post-processing (maximum intensity projection images, volume rendered images and/or shaded surface rendered images). One or more of the following dose reduction technique s were used: Automated exposure control, adjustment of the mA and/or kV according to patient size, and/or iterative reconstruction. Unless otherwise specified, incidental findings do not require dedic ated imaging follow-up. COMPARISON: No prior exam. FINDINGS: ICA: The petrous, cavernous, and supraclinoid segments of the bilateral internal carotid arteries are normal. The ophthalmic artery origins are visualized and normal. The posterior communicating arteries are patent. KARISHMA: Anterior cerebral arteries are normal bilaterally. The anterior communicating artery is patent. MCA: Middle cerebral arteries are normal bilaterally. STUDENT UNION CONSULTANT: Posterior cerebral arteries are normal bilaterally. Vertebrobasilar: The vertebral arteries are patent. The basilar artery is normal in appearance. 3D images confirm these findings. IMPRESSION: No occlusion, aneurysm, or hemodynamically significant stenosis identified.
[2024-05-04 13:06] LABS: Absolute Eosinophils 0.4 K/uL (0-0.5); Absolute Monocytes 0.5 K/uL (0.1-1.3); Absolute Neutrophil 4.3 K/uL (1.8-8.0); Basophils % 0.3 % (0-1.3); Eosinophils % 5.5 % (0-4.4); Hematocrit 38.5 % (36.0-45.0); Hemoglobin 13.4 g/dL (12.0-15.0); Lymphocytes % 28.2 % (15.3-44.8); MCH 29.5 pg (27.0-35.0); MCHC 34.7 g/dL (32.0-36.0); MCV 84.9 fL (80-100); MPV 9.5 fL (7.6-11.3); Monocytes % 6.5 % (3.3-12.3); Neutrophils % 59.5 % (41.7-73.7); Nucleated Red Blood Cells % 0.1 % (0-0); Platelets 170 thou/uL (152-406); RBC Red Blood Cell Count 4.54 M/uL (3.86-4.86); Red Cell Distribution Width 13.8 % (12.1-15.2)
[2024-05-04 13:17] LABS: PT Prothrombin Time 10.8 SECONDS (9.4-12.5); PTT, Activated Partial Thromb 29.1 SECONDS (24.3-36.9); Protime INR 1.03
--- NOTE | 2024-05-04 13:40 | RAD REPORT ---
EXAM: Chest Single View HISTORY: stroke w/u COMPARISON: None. FINDINGS: LUNGS/PLEURA: The lungs are clear. No pleural effusions or pneumothorax. No pulmonary edema. MEDIASTINUM: The mediastinal silhouette is within normal limits. CARDIAC: Mild cardiomegaly UPPER ABDOMEN: No significant abnormality. BONES: No acute abnormality. LINES/TUBES/OTHER: N/A IMPRESSION: No evidence of acute cardiopulmonary disease.
[2024-05-04 13:43] LABS: Specific Gravity > 1.030 (1.005-1.030); Sqamous Epithelial <5 /HPF (None Seen); Urine Bacteria None Seen /HPF (<20); Urine Bilirubin NEGATIVE (Negative); Urine Blood Negative (Negative); Urine Clarity Clear (Clear); Urine Color Light-Yellow (Yellow); Urine Culture Reflex Order NOT NEEDED; Urine Glucose 4+ (Over) (Negative); Urine Ketones NEGATIVE (Negative); Urine Micro Reflex YN NO BILL MICROSCOPIC; Urine Nitrite NEGATIVE (Negative); Urine Protein 1+ (Negative); Urine RBC None Seen /HPF (None Seen); Urine Urobilinogen Normal (Normal); Urine WBC None Seen /HPF (<5)
--- NOTE | 2024-05-04 13:53 | EDPHYS ---
Physician Documentation [facility] Name: Calista Jones Age: 58 yrs Sex: Female : 1965 Arrival Date: 05/04/2024 Time: 12:34 Bed 4 Private MD: ED Physician Joshua Dallas HPI: 05/04 12:38 This 58 yrs old Female presents to ER via Unassigned with complaints of S/S of ec2 Possible Stroke. 12:38 Last known well at 12:00, history of diabetes, hypertension. Arrives today for feeling ec2 unwell, was reportedly at lunch and reported that she did not feel well. Family had noted a facial droop that they described as right-sided. Reports that facial droop has since improved. No falls injury or trauma, no history of stroke, not on blood thinners.. 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 - Infectious Disease History:: Denies. - Social history:: Smoking status: Patient reports the use of cigarette tobacco products, denies chronic smoking, but will smoke occasionally. ROS: 12:38 Constitutional: as per hpi ec2 Exam: 12:38 Constitutional: GEN: NAD Head: atraumatic Eyes: EOMI Ears: External ears are ec2 normal. CV: regular rate LUNGS: no respiratory distress ABD: non-distended SKIN: no evidence of rashes MSK: no evidence of trauma. Neuro: Cranial nerves II to XII with no appreciable facial droop noted. Bilateral upper extremity and lower extremity strength intact. Sensation intact throughout. No pronator drift appreciated. Dysarthria noted Vital Signs: 12:35 BP 179 / 101; Pulse 91; Resp 16 S; Temp 97.8(O); Pulse Ox 99% on R/A; Weight 92.99 kg kc6 (M); Height 5 ft. 1 in. (R); 13:57 BP 159 / 101; Pulse 85; Resp 16 S; Pulse Ox 97% on R/A; kc6 15:16 BP 151 / 84; Pulse 77; Resp 17 S; Pulse Ox 97% on R/A; kc6 12:35 Body Mass Index 38.73 (92.99 kg, 154.94 cm) kc6 NIH Stroke Scale Scores: 12:35 NIHSS Score: 1 kc6 12:39 NIHSS Score: 1 ec2 MDM: 12:36 Medical Screening Exam initiated ec2 12:40 Data reviewed: vital signs, nurses notes. ED course: Patient arrives today for ec2 evaluation of feeling unwell. Examination yields a dysarthric individual who otherwise is in no acute distress with a otherwise nonfocal neurologic examination. Will obtain lab work, EKG, stroke workup. Less than 1 12:00. Patient not on blood thinners.. 13:12 ED course: Had a thorough discussion with patient, , adult children both in ec2 person and over the phone and ultimately we decided against TNK given the minor symptoms and improving symptoms. Patient does remain with slurred speech.. 13:12 ED course: EKG independently reviewed and interpreted by me, shows normal sinus rhythm, ec2 rate of 83, no acute ST segment elevations, intervals are nonactionable, right bundle branch block noted, PVCs noted.. 13:14 ED course: Discussed with radiology, negative CT scan of the head.. ec2 13:51 ED course: Labs, imaging are negative. Will admit for further stroke workup. Discussed ec2 with hospitalist, pending admission.. 05/04 12:37 Order name: Basic Metabolic Panel; Complete Time: 17:03 ec2 05/04 12:37 Order name: CBC with Diff; Complete Time: 13:14 ec2 05/04 12:37 Order name: High Sensitivity Troponin; Complete Time: 17:03 ec2 05/04 12:37 Order name: Protime (+inr); Complete Time: 13:51 ec2 05/04 12:37 Order name: Ptt, Activated; Complete Time: 13:51 ec2 05/04 13:15 Order name: UAM; Complete Time: 13:51 ec2 05/04 15:17 Order name: Basic Metabolic Panel EDMS 05/04 15:17 Order name: Basic Metabolic Panel EDMS 05/04 15:17 Order name: Basic Metabolic Panel EDMS 05/04 15:17 Order name: Basic Metabolic Panel EDGA 05/04 15:17 Order name: CBC with Automated Diff EDMS 05/04 15:17 Order name: CBC with Automated Diff EDMS 05/04 15:17 Order name: CBC with Automated Diff EDMS 05/04 15:17 Order name: CBC with Automated Diff EDMS 05/04 15:17 Order name: Lipid Profile EDMS 05/04 15:17 Order name: Lipid Profile EDMS 05/04 15:17 Order name: Magnesium EDMS 05/04 15:18 Order name: Magnesium EDMS 05/04 15:18 Order name: Magnesium EDMS 05/04 15:18 Order name: Magnesium EDMS 05/04 15:18 Order name: Phosphorus EDMS 05/04 15:18 Order name: Phosphorus EDMS 05/04 15:18 Order name: Phosphorus EDMS 05/04 15:18 Order name: Phosphorus EDMS 05/04 15:18 Order name: T4,Total EDMS 05/04 15:18 Order name: T4,Total EDMS 05/04 15:18 Order name: Thyroid Stimulating Hormone EDMS 05/04 15:18 Order name: Thyroid Stimulating Hormone EDMS 05/04 15:18 Order name: Troponin High Sensitivity EDMS 05/04 15:18 Order name: Troponin High Sensitivity EDMS 05/04 15:18 Order name: Troponin High Sensitivity EDMS 05/04 12:37 Order name: CT Head Angio; Complete Time: 13:14 ec2 05/04 12:37 Order name: CT Neck Angio; Complete Time: 13:14 ec2 05/04 12:37 Order name: CT Stroke Brain w/o Contrast; Complete Time: 13:14 ec2 05/04 12:37 Order name: Stroke CXR 1 View; Complete Time: 13:51 ec2 05/04 15:17 Order name: Echo with Doppler EDMS 05/04 15:18 Order name: Stroke Protocol EDMS 05/04 15:17 Order name: Physical Therapy Consult EDMS 05/04 15:17 Order name: Speech Therapy Consult EDMS 05/04 12:37 Order name: Accucheck; Complete Time: 12:53 ec2 05/04 12:37 Order name: Cardiac monitoring; Complete Time: 13:20 ec2 05/04 12:37 Order name: EKG - Nurse/Tech; Complete Time: 13:20 ec2 05/04 12:37 Order name: IV Saline Lock; Complete Time: 13:20 ec2 02/08 12:37 Order name: Labs collected and sent; Complete Time: 13:20 ec2 05/04 12:37 Order name: NPO; Complete Time: 13:20 ec2 05/04 12:37 Order name: O2 Per Protocol; Complete Time: 13:20 ec2 05/04 12:37 Order name: O2 Sat Monitoring; Complete Time: 13:20 ec2 05/04 12:37 Order name: Stroke Swallow Screen; Complete Time: 13:20 ec2 05/04 13:10 Order name: Labs - recollect needed: please recollect green top; Complete Time: 13:28 eb Administered Medications: No medications were administered Point of Care Testing: Blood Glucose: 12:35 Blood Glucose: 369 mg/dL; kc6 Ranges: Critical Glucose Levels:Adult <50 mg/dl or >400 mg/dl <40 mg/dl or >180 mg/dl Disposition Summary: 05/04/24 13:52 Hospitalization Ordered Notes: Hospitalization Status: Inpatient Admission ec2 Provider: Cale Phipps ec2 Location: Telemetry/[facility] (Inpatient) ec2 Condition: Stable ec2 Problem: new ec2 Symptoms: have improved ec2 Bed/Room Type: Standard ec2 Room Assignment: 229(05/04/24 15:23) em1 Diagnosis - Dysarthria, unspecified ec2 Forms: - Medication Reconciliation Form ec2 - SBAR form ec2 - Leadership Thank You Letter ec2 NIH Stroke Scale - NIH Stroke Score Date: 05/04/2024 Time: 12:35 Total Score = 1 10. Dysarthria (speech clarity - read or repeat words) - 0(Normal) 11. Extinction and Inattention (visual/tactile/auditory/spatial/personal) - 0(No abnormality) 1a. Level of Consciousness (LOC) - 0(Alert) 1b. Level of Consciousness (LOC) (Month \T\ Age) - 0(Both) 1c. LOC Commands (Open \T\ Closes Eyes/Vibrator Operator) - 0(Both) 2. Best Gaze (Lateral Gaze Paresis) - 0(Normal) 3. Visual Field Loss - 0(No visual loss) 4. Facial Palsy - 0(Normal) 5a. Left Arm: Motor (10-second hold) - 0(No drift) 5b. Right Arm: Motor (10-second hold) - 0(No drift) 6a. Left Leg: Motor (5-second hold - always test supine) - 0(No drift) 6b. Right Leg: Motor (5-second hold - always test supine) - 0(No drift) 7. Limb Ataxia (finger/nose \T\ heel/gruber - test with eyes open) - 0(Absent) 8. Sensory Loss (pinprick arms/legs/face) - 0(Normal) 9. Best Language: Aphasia (description/naming/reading) - 1(Mild to moderate aphasia) Initials: kc6 NIH Stroke Scale - NIH Stroke Score Date: 05/04/2024 Time: 12:39 Total Score = 1 10. Dysarthria (speech clarity - read or repeat words) - 1(Mild to Moderate) 11. Extinction and Inattention (visual/tactile/auditory/spatial/personal) - 0(No abnormality) 1a. Level of Consciousness (LOC) - 0(Alert) 1b. Level of Consciousness (LOC) (Month \T\ Age) - 0(Both) 1c. LOC Commands (Open \T\ Closes Eyes/Vibrator Operator) - 0(Both) 2. Best Gaze (Lateral Gaze Paresis) - 0(Normal) 3. Visual Field Loss - 0(No visual loss) 4. Facial Palsy - 0(Normal) 5a. Left Arm: Motor (10-second hold) - 0(No drift) 5b. Right Arm: Motor (10-second hold) - 0(No drift) 6a. Left Leg: Motor (5-second hold - always test supine) - 0(No drift) 6b. Right Leg: Motor (5-second hold - always test supine) - 0(No drift) 7. Limb Ataxia (finger/nose \T\ heel/gruber - test with eyes open) - 0(Absent) 8. Sensory Loss (pinprick arms/legs/face) - 0(Normal) 9. Best Language: Aphasia (description/naming/reading) - 0(No aphasia) Initials: ec2 Signatures: Dispatcher [employer] Humble Serrano Elizabeth eb Campbell, Kaitlyn RN RN kc6 Joshua Dallas MD MD ec2 Corrections: (The following items were deleted from the chart) 12:37 12:37 CT-STROKE BRAIN W/O CONTRAST+CT.RAD.BRZ ordered. EDMS EDMS 12:37 12:37 Chest Single View+RAD.RAD.BRZ ordered. EDMS EDMS 13:15 13:15 Urinalysis W/Microscopic+U.LAB.BRZ ordered. EDMS EDMS 15: 13:52 ec2 em1
--- NOTE | 2024-05-04 13:53 | ER ---
Nurse's Notes [facility] Name: Calista Jones Age: 58 yrs Sex: Female : 1965 Arrival Date: 05/04/2024 Time: 12:34 Bed 4 Private MD: Diagnosis: Dysarthria, unspecified Presentation: 05/04 12:35 Chief complaint: Patient's son or daughter states: "We were eating and she just started ss going down. Just very sleepy and it looks like her mouth is drooping a little bit.". Coronavirus screen: Client denies travel out of the [place] in the last 14 days. Ebola Screen: Patient denies exposure to infectious person. Patient denies travel to an Ebola-affected area in the 21 days before illness onset. Initial Sepsis Screen: Does the patient meet any 2 criteria? No. Patient's initial sepsis screen is negative. Does the patient have a suspected source of infection? No. Patient's initial sepsis screen is negative. Risk Assessment: Do you want to hurt yourself or someone else? Patient reports no desire to harm self or others. Note CODE STROKE CALLED AT THIS TIME. Onset of symptoms was May 04, 2024 at 11:45. 12:35 Method Of Arrival: Wheelchair ss 12:35 Acuity: LEDA 2 ss 12:35 An acute neurological deficit is present. The charge nurse has been notified. The [facility] patients blood glucose was checked before arriving to the hospital and was found to be normal. Triage Assessment: 13:13 The onset of the patients symptoms was May 04, 2024 at 12:00. kc Stroke Activation: Symptom onset < 3 hours Physician: ED Attending; Name: Dr. 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 - Infectious Disease History:: Denies. - Social history:: Smoking status: Patient reports the use of cigarette tobacco products, denies chronic smoking, but will smoke occasionally. Screenin:35 [facility] ED Fall Risk Assessment (Adult) History of falling in the last 3 months, kc6 including since admission No falls in past 3 months (0 pts) Confusion or Disorientation No (0 pts) Intoxicated or Sedated No (0 pts) Impaired Gait No (0 pts) Mobility Assist Device Used No (0 pt) Altered Elimination No (0 pt) Score/Fall Risk Level 0 - 2 = Low Risk Oriented to surroundings, Maintained a safe environment, Educated pt \\T\\ family on fall prevention, incl call for assistance when getting out of bed. Abuse screen: Denies threats or abuse. Denies injuries from another. Nutritional screening: No deficits noted. Tuberculosis screening: No symptoms or risk factors identified. 12:35 VAN Screening: Arm Drift: Patient shows no arm weakness. Patient is VAN negative. kc6 Visual Disturbance: No visual disturbance noted. Aphasia: No aphasia noted. Neglect: No neglect noted. Rosa Swallow Protocol Brief Cognitive Screen What is your name? Normal, Where are you right now? Normal, What year is it? Normal. Oral Mechanism Examination Facial Symmetry: Normal, Motion: Normal, Lip Closure: Normal, Oral Mechanism Result: Normal. 3 oz Water Swallow Challenge: Pt able to drink all water without stopping, coughing, choking or throat clearing: Yes Result: PASS MD Notified: Joshua Dallas MD. Assessment: 12:35 Reassessment: Pt to CT at this time VIA stretcher with EFE Reich. ss 12:35 General: Appears in no apparent distress. comfortable, well groomed, well developed, kc6 Behavior is calm, cooperative, appropriate for age, drowsy. Pain: Pain radiates to right leg and left leg Quality of pain is described as crampy, Pain began suddenly. Neuro: Level of Consciousness is awake, alert, obeys commands, Oriented to person, place, time, situation, Appropriate for age Upholstery Restorer are equal bilaterally Moves all extremities. Full function Gait is steady, Speech is slurred, Facial symmetry appears normal, Pupils are PERRLA, Intact Babinski is positive Reports weakness generalized Denies blurred vision numbness headache. Cardiovascular: Denies chest pain, shortness of breath, Heart tones S1 S2 present Capillary refill < 3 seconds Rhythm is sinus rhythm with unifocal PVCs. Respiratory: Airway is patent Trachea midline Respiratory effort is even, unlabored, Respiratory pattern is regular, symmetrical. GI: No signs and/or symptoms were reported involving the gastrointestinal system. : No signs and/or symptoms were reported regarding the genitourinary system. EENT: No signs and/or symptoms were reported regarding the EENT system. Derm: No signs and/or symptoms reported regarding the dermatologic system. Skin is intact, is healthy with good turgor, Skin is pink, warm \\T\\ dry. Musculoskeletal: No signs and/or symptoms reported regarding the musculoskeletal system. Circulation, motion, and sensation intact. Range of motion: intact in all extremities. 13:31 Reassessment: Patient appears in no apparent distress at this time. No changes from [facility] previously documented assessment. Patient and/or family updated on plan of care and expected duration. Pain level reassessed. Patient is alert, oriented x 3, equal unlabored respirations, skin warm/dry/pink. 15:16 Reassessment: Patient appears in no apparent distress at this time. No changes from [facility] previously documented assessment. Patient and/or family updated on plan of care and expected duration. Pain level reassessed. Patient is alert, oriented x 3, equal unlabored respirations, skin warm/dry/pink. Vital Signs: 12:35 BP 179 / 101; Pulse 91; Resp 16 S; Temp 97.8(O); Pulse Ox 99% on R/A; Weight 92.99 kg kc6 (M); Height 5 ft. 1 in. (R); 13:57 BP 159 / 101; Pulse 85; Resp 16 S; Pulse Ox 97% on R/A; 6 15:16 BP 151 / 84; Pulse 77; Resp 17 S; Pulse Ox 97% on R/A; 6 12:35 Body Mass Index 38.73 (92.99 kg, 154.94 cm) [facility] NIH Stroke Scale Scores: 12:35 NIHSS Score: 1 kc6 12:39 NIHSS Score: 1 2 ED Course: 12:35 Patient arrived in ED. ec2 12:35 Arm band placed on. kc6 12:35 Patient has correct armband on for positive identification. Placed in gown. Bed in low kc6 position. Call light in reach. Side rails up X2. Adult w/ patient. profile saw setup operator on. Pulse ox on. NIBP on. Door closed. Noise minimized. Lights dimmed. Warm blanket given. Pillow given. 12:36 Joshua Dallas MD is Attending Physician. ec2 12:43 Triage completed. ss 12:49 Inserted saline lock: 18 gauge in right antecubital area, using aseptic technique. kc6 Blood collected. Flushed with 10 mL NS. Patient maintains SpO2 saturation greater than 95% on room air. 12:56 CT Head Angio In Process Unspecified. EDMS 12:56 CT Neck Angio In Process Unspecified. EDMS 12:56 CT Stroke Brain w/o Contrast In Process Unspecified. EDMS 13:28 Rachana Corey, EFE is Primary Nurse. kc6 13:28 UAM Sent. kc6 13:29 Assisted to bedside commode. kc6 13:34 Stroke CXR 1 View In Process Unspecified. EDMS 13:52 Cale Phipps is Hospitalizing Provider. ec2 Administered Medications: No medications were administered Point of Care Testing: Blood Glucose: 12:35 Blood Glucose: 369 mg/dL; kc6 Ranges: Outcome: 13:52 Decision to Hospitalize by Provider. ec2 16:13 Patient left the ED. ll1 NIH Stroke Scale - NIH Stroke Score Date: 05/04/2024 Time: 12:35 Total Score = 1 10. Dysarthria (speech clarity - read or repeat words) - 0(Normal) 11. Extinction and Inattention (visual/tactile/auditory/spatial/personal) - 0(No abnormality) 1a. Level of Consciousness (LOC) - 0(Alert) 1b. Level of Consciousness (LOC) (Month \\T\\ Age) - 0(Both) 1c. LOC Commands (Open \\T\\ Closes Eyes/Food Truck Caterer) - 0(Both) 2. Best Gaze (Lateral Gaze Paresis) - 0(Normal) 3. Visual Field Loss - 0(No visual loss) 4. Facial Palsy - 0(Normal) 5a. Left Arm: Motor (10-second hold) - 0(No drift) 5b. Right Arm: Motor (10-second hold) - 0(No drift) 6a. Left Leg: Motor (5-second hold - always test supine) - 0(No drift) 6b. Right Leg: Motor (5-second hold - always test supine) - 0(No drift) 7. Limb Ataxia (finger/nose \\T\\ heel/gruber - test with eyes open) - 0(Absent) 8. Sensory Loss (pinprick arms/legs/face) - 0(Normal) 9. Best Language: Aphasia (description/naming/reading) - 1(Mild to moderate aphasia) Initials: kc6 NIH Stroke Scale - NIH Stroke Score Date: 05/04/2024 Time: 12:39 Total Score = 1 10. Dysarthria (speech clarity - read or repeat words) - 1(Mild to Moderate) 11. Extinction and Inattention (visual/tactile/auditory/spatial/personal) - 0(No abnormality) 1a. Level of Consciousness (LOC) - 0(Alert) 1b. Level of Consciousness (LOC) (Month \\T\\ Age) - 0(Both) 1c. LOC Commands (Open \\T\\ Closes Eyes/Food Truck Caterer) - 0(Both) 2. Best Gaze (Lateral Gaze Paresis) - 0(Normal) 3. Visual Field Loss - 0(No visual loss) 4. Facial Palsy - 0(Normal) 5a. Left Arm: Motor (10-second hold) - 0(No drift) 5b. Right Arm: Motor (10-second hold) - 0(No drift) 6a. Left Leg: Motor (5-second hold - always test supine) - 0(No drift) 6b. Right Leg: Motor (5-second hold - always test supine) - 0(No drift) 7. Limb Ataxia (finger/nose \\T\\ heel/gruber - test with eyes open) - 0(Absent) 8. Sensory Loss (pinprick arms/legs/face) - 0(Normal) 9. Best Language: Aphasia (description/naming/reading) - 0(No aphasia) Initials: ec2 Signatures: Dispatcher [employer] Ashly Muñoz RN RN ss León Ibarra RN RN ll1 Rachana Corey RN RN kc6 Joshua Dallas MD MD ec2
[2024-05-04 13:54] LABS: Anion Gap 7.7 mEq/L (5.0-15.0); Potassium 3.7 mEq/L (3.5-5.1); Troponin High Sensitivity 26.8 pg/mL (<58.9)
--- NOTE | 2024-05-04 14:43 | P.HP ---
Certification for Inpatient Patient admitted to: Observation With expected LOS: <2 Midnights Practitioner: I am a practitioner with admitting privileges, knowledge of patient current condition, hospital course, and medical plan of care. Services: Services provided to patient in accordance with Admission requirements found in Title 42 Section 412.3 of the Code of Federal Regulations Patient History Date of Service: 05/04/24 Reason for admission: CVA r/o History of Present Illness: Calista Jones is a 58 year old female with Pmhx fallon's palsy, HTN, DM- IDDM who presents to the ED with facial drooping and lethargy. Family at the bedside reports last known normal at noon, while eating she was "eating funny" and falling asleep, right sided facial drooping was noted. Upon arrival to the ED NIHSS 1 for dysarthria. On examination, she is lethargic, falling asleep while speaking, symmetrical facial expressions, symmetrical weakness d/t lethargy. Laboratory evaluation significant for serum glucose 332, UA negative for infectious process. CXR reports "No evidence of acute cardiopulmonary disease." Head CT without contrast reports "INTRACRANIAL: No acute intracranial hem orrhage. No hydrocephalus. No mass effect or midline shift. No significant white matter disease. VASCULATURE: No visualized abnormalities in the arteries or dural venous sinuses. SCALP/SKULL: No significant soft tissue or osseous abnormalities. SINUSES: The visualized paranasal sinuses and mastoid air cells are predominantly clear. IMPRESSION: No acute intracranial abnormality." CTA head reports "No occlusion, aneurysm, or hemodynamically significant stenosis identified." CTA neck reports "No dissection or stenosis identified." Calista will be admitted to hospitalist service for further evaluation for CVA r/o, Dr. De consulted. Allergies No Known Allergies Allergy (Verified 05/04/24 19:14) - Past Medical/Surgical History -: Diabetes mellitusIDDM -: Hypertension -: Fallon's palsy -: Glaucoma -: Cholecystectomy - Social History Smoking Status: Current every day smoker Alcohol use: No CD- Drugs: No Review of Systems Other: per HPI Physical Examination - Physical Exam General: Oriented x1, Other (lethargic) HEENT: Atraumatic, Normocephalic Neck: Supple, 2+ carotid pulse no bruit Respiratory: Clear to auscultation bilaterally, Normal air movement Cardiovascular: Normal pulses, Regular rate/rhythm, Normal S1 S2 Capillary refill: <2 Seconds Gastrointestinal: Normal bowel sounds, Soft and benign Integumentary: No rashes Neurological: Other (generalized weakness, lethargic), Abnormal speech - Studies Laboratory Data (last 24 hrs) 05/04/24 05/04/24 05/04/24 13:27 12:57 12:57 WBC 7.20 Hgb 13.4 Hct 38.5 Plt Count 170 PT 10.8 INR 1.03 APTT 29.1 Sodium 138 Potassium 3.7 BUN 17 Creatinine 0.82 Glucose 332 H Assessment and Plan - Plan Assessment and Plan CVA r/o History of Fallon's palsy - Consulted Neurology - recommendations appreciated - Admit under observation status - NIHSS = 1, dysarthria - Allow permissive hypertension for tonight - q4hr neurochecks - MR brain reports "Acute right basal ganglia infarct involving the anterior aspect of the lentiform nucleus and caudate head." - Ordered TTE - PT/OT evaluation requested - Ordered risk profile: Hgb A1c, lipid panel, TSH - Started aspirin, folic acid, atorvastatin DM- IDDM -Serum glucose 332 -Accu-Chek with sliding scale insulin HTN -continue home mediations Smoking abuse -1/2 pack of cigarettes a day -Cessation education provided DVT ppx lovenox Full code LOS 24 hour OBS Discharge Plan: Home Plan to discharge in: 24 Hours - Advance Directives Does patient have a Living Will: No Does patient have a Durable POA for Healthcare: No
[2024-05-04] MEDS ORDERED: ACETAMINOPHEN 500 MG TAB PO PRN (15:09)
[2024-05-04 16:33] VITALS: O2SAT 97
[2024-05-04] MEDS: INSULIN REGULAR (HUMAN) 100 UNIT/ML SQ SCH (17:14)
--- NOTE | 2024-05-04 19:06 | RAD REPORT ---
EXAMINATION: MRI BRAIN WITHOUT CONTRAST CLINICAL INDICATION: Female, 58 years old. CVA rule out TECHNIQUE: Multiplanar multisequence MR images of the brain were obtained without intravenous contras t. Unless otherwise specified, incidental findings do not require dedicated imaging follow-up. [id number]. COMPARISON: Same-day head CT FINDINGS: INTRACRANIAL: Right basal ganglia infarct involving the right caudate head and anterior aspect of the lentiform nucleus. No significant mass effect or midline shift.No hydrocephalus. No significant white matter disease. VASCULATURE: Normal signal voids in the larger intracranial arteries and dural venous sinuses. SINUSES: The paranasal sinuses are clear.No mastoid effusions. BONE: The marrow signal pattern is within normal limits. IMPRESSION: Acute right basal ganglia infarct involving the anterior aspect of the lentiform nucleus and caudate head.
[2024-05-04] MEDS: NA CHLORIDE 0.9% 1,000 ML IV SCH (19:40)
[2024-05-04] MEDS: ATORVASTATIN 40 MG TAB PO SCH (19:41)
[2024-05-04] MEDS: ENOXAPARIN 40 MG/0.4 ML SQ SCH (19:44)
[2024-05-04 20:15] VITALS: BMI 38.7
[2024-05-05 05:55] LABS: Absolute Eosinophils 0.4 K/uL (0-0.5); Absolute Monocytes 0.5 K/uL (0.1-1.3); Absolute Neutrophil 3.6 K/uL (1.8-8.0); Basophils % 0.5 % (0-1.3); Eosinophils % 5.5 % (0-4.4); Hematocrit 36.9 % (36.0-45.0); Hemoglobin 12.8 g/dL (12.0-15.0); Lymphocytes % 30.8 % (15.3-44.8); MCH 29.4 pg (27.0-35.0); MCHC 34.6 g/dL (32.0-36.0); MPV 9.2 fL (7.6-11.3); Monocytes % 7.3 % (3.3-12.3); Neutrophils % 55.9 % (41.7-73.7); Nucleated Red Blood Cells % 0.1 % (0-0); Platelets 152 thou/uL (152-406); RBC Red Blood Cell Count 4.35 M/uL (3.86-4.86); Red Cell Distribution Width 13.9 % (12.1-15.2)
[2024-05-05 06:14] LABS: Magnesium 1.9 mg/dL (1.6-2.4); Phosphorus 3.1 mg/dL (2.5-4.9); T4,Total 9.7 ug/dL (4.8-13.9); Thyroid Stimulating Hormone 1.64 uIU/mL (0.358-3.740); Troponin High Sensitivity 34.2 pg/mL (<58.9)
[2024-05-05] MEDS: lisinopriL 10 MG TAB PO SCH (08:35)
[2024-05-05] MEDS: CLOPIDOGREL 75 MG TABLET PO SCH (08:35)
[2024-05-05] MEDS: FOLIC ACID 1 MG TABLET PO SCH (08:35)
[2024-05-05] MEDS: METFORMIN ER 500 MG TAB PO SCH (08:35)
[2024-05-05] MEDS: ASPIRIN EC 81 MG TAB PO SCH (08:35)
[2024-05-05] MEDS: HUMALOG MIX 75/25 100 UNITS/ML SQ SCH (09:00)
--- NOTE | 2024-05-05 10:51 | P.DS ---
Admission Date: 05/04/24 Discharge Date: 05/05/24 Disposition: ROUTINE DISCHARGE Discharge Condition: GOOD Reason for Admission: CVA r/o Brief History of Present Illness: Diagnosis Acute right basal ganglia infarct involving the anterior aspect of the lentiform nucleus and caudate head History of Fallon's palsy DM- IDDM HTN Smoking abuse HPI 05/04/24 Calista Jones is a 58 year old female with Pmhx fallon's palsy, HTN, DM- IDDM who presents to the ED with facial drooping and lethargy. Family at the bedside reports last known normal at noon, while eating she was "eating funny" and falling asleep, right sided facial drooping was noted. Upon arrival to the ED NIHSS 1 for dysarthria. On examination, she is lethargic, falling asleep while speaking, symmetrical facial expressions, symmetrical weakness d/t lethargy. Laboratory evaluation significant for serum glucose 332, UA negative for infectious process. CXR reports "No evidence of acute cardiopulmonary disease." Head CT without contrast reports "INTRACRANIAL: No acute intracranial hemorrhage. No hydrocephalus. No mass effect or midline shift. No significant white matter disease. VASCULATURE: No visualized abnormalities in the arteries or dural venous sinuses. SCALP/SKULL: No significant soft tissue or osseous abnormalities. SINUSES: The visualized paranasal sinuses and mastoid air cells are predominantly clear. IMPRESSION: No acute intracranial abnormality." CTA head reports "No occlusion, aneurysm, or hemodynamically significant stenosis identified." CTA neck reports "No dissection or stenosis identified." Calista will be admitted to hospitalist service for further evaluation for CVA r/o, Dr. De consulted. Hospital Course: Patient was admitted and treated for the following diagnosis: Acute right basal ganglia infarct involving the anterior aspect of the lentiform nucleus and caudate head History of Fallon's palsy - Consulted Neurology - recommends folic acid, plavix, statin, aspirin -acute stroke will be medically managed - NIHSS = 0, speech has cleared, ambulating independently, - Allowed permissive hypertension, tolerated well - MR brain reports "Acute right basal ganglia infarct involving the anterior aspect of the lentiform nucleus and caudate head." - Outpatient TTE - Walked around the nurses station successfully - Ordered risk profile: Hgb A1c, lipid panel, TSH WNL - Started aspirin, folic acid, atorvastatin DM- IDDM -continued home medications HTN -continued home mediations Smoking abuse -1/2 pack of cigarettes a day -Cessation education provided On 05/05/24, Calista was seen on morning rounds and deemed medically stable. Dr. De has clear her for discharge and medical management. Calista was discharged with instructions to schedule follow-up appointments with Dr. De and PCP. She lives out of town and will follow up with her PCP for a neurology referral. Calista was provided prescriptions for aspirin, Lipitor, Plavix, folic acid. Physical Exam General: Alert and Oriented x4, NAD HEENT: Atraumatic, Normocephalic Neck: Supple, 2+ carotid pulse no bruit Respiratory: Clear to auscultation bilaterally, Normal air movement, on RA Cardiovascular: Normal pulses, NSR, Normal S1 S2 Capillary refill: <2 Seconds Gastrointestinal: Normal active bowel sounds, Soft and benign on palpation Integumentary: No rashes Neurological: normal gait and speech Vital Signs/Physical Exam: Temp Pulse Resp BP Pulse Ox 97.6 F 78 16 161/87 H 96 05/05/24 08:00 05/05/24 08:35 05/05/24 08:00 05/05/24 08:35 05/05/24 08:00 Laboratory Data at Discharge: WBC 6.50 thou/uL (4.3-10.9) 05/05/24 05:30 Hgb 12.8 g/dL (12.0-15.0) 05/05/24 05:30 Hct 36.9 % (36.0-45.0) 05/05/24 05:30 Plt Count 152 thou/uL (152-406) 05/05/24 05:30 PT 10.8 SECONDS (9.4-12.5) 05/04/24 12:57 INR 1.03 05/04/24 12:57 APTT 29.1 SECONDS (24.3-36.9) 05/04/24 12:57 Sodium 142 mEq/L (136-145) 05/05/24 05:26 Potassium 4.0 mEq/L (3.5-5.1) 05/05/24 05:26 BUN 19 mg/dL (7-18) H 05/05/24 05:26 Creatinine 0.72 mg/dL (0.55-1.02) 05/05/24 05:26 Glucose 183 mg/dL (74-106) H 05/05/24 05:26 Phosphorus 3.1 mg/dL (2.5-4.9) 05/05/24 05:26 Magnesium 1.9 mg/dL (1.6-2.4) 05/05/24 05:26 Triglycerides 133 mg/dL (<150) 05/05/24 05:26 Cholesterol 166 mg/dL (<200) 05/05/24 05:26 HDL Cholesterol 45 mg/dL (40-60) 05/05/24 05:26 Cholesterol/HDL Ratio 3.69 05/05/24 05:26 Home Medications: Insulin Lispro MIX 75/25 [Humalog Mix 75/25*] 10 units SQ BID 05/04/24 Lisinopril [Zestril] 10 mg PO DAILY 05/04/24 Metformin ER [Glucophage ER*] 500 mg PO BID 05/04/24 Aspirin [Aspirin EC 81 MG] 81 mg PO DAILY 30 Days #30 tab 05/05/24 Atorvastatin Calcium [Lipitor] 40 mg PO BEDTIME 30 Days #30 tab 05/05/24 Clopidogrel Bisulfate [Plavix*] 75 mg PO DAILY 30 Days #30 tab 05/05/24 Folic Acid 1 mg PO DAILY 30 Days #30 tab 05/05/24 New Medications: Aspirin [Aspirin EC 81 MG] 81 mg PO DAILY 30 Days #30 tab Folic Acid 1 mg PO DAILY 30 Days #30 tab Atorvastatin Calcium [Lipitor] 40 mg PO BEDTIME 30 Days #30 tab Clopidogrel Bisulfate [Plavix*] 75 mg PO DAILY 30 Days #30 tab Physician Discharge Instructions: Calista presented to the ED with sudden lethargy and facial droop. MRI head identified Acute right basal ganglia infarct involving the anterior aspect of the lentiform nucleus and caudate head. Dr. De consulted and deemed medical management necessary. Guidelines follow, folic acid, plavix, aspirin, lipitor, and lovenox started. Will discharge with plans to follow up with neurology and outpatient ECHO. Please monitor blood pressure closely and continue medications as prescribed. 1. Please call and schedule a follow-up appointment with your PCP in 3-5 days - Please follow-up with your PCP for medication refills/adjustments 2. Please call and schedule a follow-up appointment with Dr. De or a neurologist in your area in one week 3. Continue heart healthy diet 4. activity restrictions fall precautions 5. Return to the ED if symptoms worsen New medications Atorvastatin 40 mg at bedtime Plavix 75 mg daily Aspirin 81 mg daily Folic acid 1 mg daily Diet: AHA Activity: Fall precautions Followup: NONE,NONE [Primary Care Provider] -
[2024-05-05 12:53] VITALS: BP 158/98; TEMP 98
== END 2024-05-05 12:47 | disposition home or self-care (01) ==
LOC: ER 12:34 → ERHOLD 15:09 → 2ND 15:31
PROVIDERS: ADMIT Internal Medicine; ATTEND Internal Medicine
DX: I63.22 Cerebral infarction due to unspecified occlusion or stenosis of basilar artery (principal); R29.810 Facial weakness; R47.1 Dysarthria and anarthria; R29.701 NIHSS score 1; I10 Essential (primary) hypertension; E11.9 Type 2 diabetes mellitus without complications; F17.210 Nicotine dependence, cigarettes, uncomplicated; Z79.4 Long term (current) use of insulin
CPT/HCPCS: 36415; 70450; 70496; 70498; 70551; 71045; 80048; 80061; 81001; 82947; 83036; 83735; 84100; 84436; 84443; 84484; 85025; 85610; 85730; 93005; 99285; G0378; J1650; J3101; J7030; Q9967